=== PATIENT | female | born 1965 | race Caucasian/White ===

== ENCOUNTER 2017-09-06 08:08 | Day surgery (SDC) | payer OTHER ==
[~2017-09-06 08:08] MED LIST: LIDOCAINE HCL 1% MPF 30 SOL ONE; PROPOFOL 500 MG/50 ML EMU IV ONE
[2017-09-06 09:38] VITALS: O2SAT 97
[2017-09-06 09:51] VITALS: BP 105/68; PULSE 58; RESP 18; TEMP 97.4
== END 2017-09-06 10:20 | disposition home or self-care (01) | DRG 951 ==
LOC: SURG 08:08
PROVIDERS: ATTEND Surgery
DX: Z12.11 Encounter for screening for malignant neoplasm of colon (principal); Z15.09 Genetic susceptibility to other malignant neoplasm
CPT/HCPCS: J2001; J2704